=== PATIENT | male | born 1955 | race Hispanic/Latino ===

== ENCOUNTER 2019-09-18 06:31 | Observation (INO) | payer OTHER, SELFPAY ==
[2019-09-18] MEDS ORDERED: ASPIRIN EC 81 MG TAB PO ONE (06:47)
[2019-09-18] MEDS ORDERED: NA CHLORIDE 0.9% 1,000 ML ONE ×2 (06:47→08:31)
[2019-09-18] MEDS ORDERED: NA CHLORIDE 0.9% 50 ML IV ONE (06:49)
[2019-09-18] MEDS ORDERED: FOLIC ACID 5 MG/ML VIAL ONE (06:49)
[2019-09-18] MEDS ORDERED: ASPIRIN 81 MG CHEWABLE TABLET ONE (06:52)
[2019-09-18 06:53] LABS: Absolute Lymphocytes (CBC) 1.2 K/uL (0.7-4.9); Basophils % 0.4 % (0-1.3); Hematocrit 45.2 % (39.6-49.0); Lymphocytes % 24.8 % (15.3-44.8); MPV 9.4 fL (7.6-11.3); RBC Red Blood Cell Count 5.36 M/uL (4.33-5.43)
--- NOTE | 2019-09-18 06:53 | ER ---
Nurse's Notes [facility] Name: Mumtaz Lucas Age: 64 yrs Sex: Male : 1955 Arrival Date: 09/18/2019 Time: 06:26 Bed 5 Private MD: Diagnosis: Transient cerebral ischemic attack, unspecified;Cerebral infarction;Type 2 diabetes mellitus Presentation: 09/17 06:30 Chief complaint: EMS states: pt states having right sided numbness and right sided sg facial droop that began around 0500 this morning, EMS reports that symptoms improved after administering oral glucose due to a FSBG of 45, sugar increased to FSBG of 76, pt hypertensive on scene with BP Systolic 140's/90's. Coronavirus screen: The patient has NOT traveled to a country currently being monitored by the [facility] within the last 14 days. The patient has NOT had contact with any known and/or suspected case of coronavirus. Ebola Screen: Patient negative for fever greater than or equal to 101.5 degrees Fahrenheit, and additional compatible Ebola Virus Disease symptoms Patient denies exposure to infectious person. Patient denies travel to an Ebola-affected area in the 21 days before illness onset. No symptoms or risks identified at this time. An acute neurological deficit is present. The charge nurse has been notified. Initial Sepsis Screen: Does the patient meet any 2 criteria? No. Patient's initial sepsis screen is negative. Does the patient have a suspected source of infection? No. Patient's initial sepsis screen is negative. Risk Assessment: Do you want to hurt yourself or someone else? Patient reports no desire to harm self or others. 06:30 Method Of Arrival: EMS: [facility] sg 06:30 Acuity: GARY 2 sg 06:30 Note pt reports he was normal before bed around 2100 on 09/17/2019. sg 07:00 The patients blood glucose was checked before arriving to the hospital and was found to jd3 be hypoglycemic. The charge nurse has been notified. Onset of symptoms was September 17, 2019 at 21:00. Triage Assessment: 07:01 Neuro: Reports numbness in right leg and right arm weakness in right leg and right arm. jd3 Stroke Activation: Symptom onset < 3 hours Physician: Stroke Attending; Name: ; Notified At: ; Arrived At: Physician: Chief Stroke Resident; Name: ; Notified At: ; Arrived At: Physician: Stroke Resident; Name: ; Notified At: ; Arrived At: Physician: ED Attending; Name: ; Notified At: ; Arrived At: Physician: ED Resident; Name: ; Notified At: ; Arrived At: Historical: - Allergies: 06:30 No Known Allergies; sg - Home Meds: 06:30 Unable to obtain [Active]; sg - PMHx: 06:30 Diabetes - NIDDM; sg - Immunization history:: Adult Immunizations not up to date. - Social history:: Smoking status: Patient denies any tobacco usage or history of. - Family history:: not pertinent. Screenin:01 Abuse screen: Denies threats or abuse. Nutritional screening: No deficits noted. jd3 Tuberculosis screening: No symptoms or risk factors identified. Fall Risk IV access (20 points). Ambulatory Aid- None/Bed Rest/Nurse Assist (0 pts). Gait- Weak (10 pts.). Mental Status- Oriented to own ability (0 pts). Total Montanez Fall Scale indicates Low Risk Score (25-44 pts). Fall prevention measures have been instituted. Side Rails Up X 2 Placed close to Nursing Station Frequent Obs/Assesments occuring Family Present and informed to notify staff if they need to leave bedside. Assessment: 06:39 VAN Scoring: Arm Drift: Minor drift Visual Disturbance: No visual disturbance noted. jd3 Aphasia: No aphasia noted. Neglect: No neglect noted. General: Appears in no apparent distress. comfortable, Behavior is calm, cooperative, appropriate for age. Pain: Denies pain. Neuro: Level of Consciousness is awake, alert, obeys commands, Oriented to person, place, time, situation, Operations Systems Specialist are weak on right Speech is slurred, Numbness in right leg and right arm. Cardiovascular: Denies chest pain, Capillary refill < 3 seconds Patient's skin is warm and dry. Rhythm is regular. Respiratory: Airway is patent Respiratory effort is even, unlabored, Respiratory pattern is regular, symmetrical, Denies cough, shortness of breath. GI: No signs and/or symptoms were reported involving the gastrointestinal system. Patient currently denies constipation, diarrhea, nausea, vomiting. : No signs and/or symptoms were reported regarding the genitourinary system. EENT: No signs and/or symptoms were reported regarding the EENT system. Derm: Skin is intact, Skin is dry, Skin is normal, Skin temperature is warm. Musculoskeletal: Circulation, motion, and sensation intact. Range of motion: limited in right arm. 06:40 The patient has not been NPO before screening. The patient is currently on the jd3 following diet: regular The patient is alert, and able to follow commands. The patient exhibits slurred or garbled speech. Provider notified of the indication for Speech Therapy consult. The patient is not exhibiting difficulty speaking. The patient does not exhibit difficulty understanding words. The patient is able to swallow own secretions with no drooling or need for suction. Patient tolerated one teaspoon of water. No drooling, immediate coughing, gurgling, or clearing of the throat was noted. The patient tolerated 90mL of water. No drooling, immediate coughing, gurgling, or clearing of the throat was noted. The patient passed the bedside swallow screening. Oral medications may be given as ordered. Contact Physician for further diet orders. Provider notified of bedside swallow screening results: Antolin Markham MD. T-PA (Activase) Screening: Contraindications: Patient reports onset of signs and symptoms of stroke greater than 6 hours ago: Yes. 07:30 Reassessment: Ramy Aguilar (coworker) is pt's visitor today. sv 07:45 Reassessment: Pt unable to to do the MRI. Informed pt that I have medication to help sv calm him down. Pt stated that he feels better. Vital Signs: 07:00 BP 170 / 76; Pulse 81; Resp 16 S; Temp 98.5(O); Pulse Ox 99% on R/A; Weight 102.06 kg j (R); Height 5 ft. 5 in. (165.10 cm) (R); Pain 0/10; 09:13 BP 139 / 84; Pulse 71; Resp 20; Pulse Ox 96% ; sv 10:00 BP 139 / 90; Pulse 71; Resp 20; Pulse Ox 96% ; sv 10:57 BP 111 / 81; Pulse 63; Resp 18; Pulse Ox 96% ; sv 07:00 Body Mass Index 37.44 (102.06 kg, 165.10 cm) j NIH Stroke Scale Scores: 06:39 NIHSS Score: 5 jd3 06:49 NIHSS Score: [address] [facility] ED Course: 06:26 Patient arrived in ED. jd3 06:28 Antolin Markham MD is Attending Physician. myla 06:30 Arm band placed on. sg 06:33 Triage completed. sg 06:34 Radiology exam delayed due to pt not registered. eh 06:38 EKG done, by ED staff, reviewed by Antolin Markham MD. sg 06:44 CT Stroke Brain w/o Contrast In Process Unspecified. EDMS 06:51 Kathrin Can MD is Hospitalizing Provider. myla 06:52 Dung Sanchez, RN is Primary Nurse. jd3 07:01 XRAY Chest (1 view) In Process Unspecified. EDMS 07:01 Patient has correct armband on for positive identification. Placed in gown. Bed in low jd3 position. Call light in reach. Side rails up X 1. Adult w/ patient. threat monitoring analyst on. Pulse ox on. NIBP on. 07:04 Maintain EMS IV. Dressing intact. Good blood return noted. Site clean \T\ dry. Gauge \T\ nikhil 3 site: 20 G left AC. 07:12 Maliha Magaña, RN is Primary Nurse. sv 07:25 US Carotid Artery Bilateral In Process Unspecified. EDMS 07:57 Head angio In Process Unspecified. EDMS 09:00 Missed attempt(s): 20 gauge in right wrist. Bleeding controlled, band aid applied, sv catheter tip intact. 09:04 Inserted saline lock: 20 gauge in right forearm, using aseptic technique. Blood sv collected. Flushed right forearm with 5 ml normal saline. 10:36 Echocardiogram with doppler done by automotive engineering technician. tc Administered Medications: 06:53 Drug: NS 0.9% 1000 ml Route: IV; Rate: 1 bolus; Site: left antecubital; bb 08:00 Follow up: Response: No adverse reaction; IV Status: Completed infusion; IV Intake: sv 1000ml 06:53 Drug: foLIC Acid 1 mg Route: IVPB; Site: left antecubital; bb 06:53 Drug: Aspirin Chewable Tablet 324 mg Route: PO; bb 07:30 Follow up: Response: No adverse reaction sv 07:50 CANCELLED (Patient Refused): Ativan 1 mg IVP once sv 09:01 Drug: Zocor 40 mg Route: PO; sv 10:00 Follow up: Response: No adverse reaction sv 09:01 Drug: PlaVIX 75 mg Route: PO; sv 10:00 Follow up: Response: No adverse reaction sv 09:02 Drug: NS 0.9% 1000 ml Route: IV; Rate: 125 ml/hr; Site: right forearm; sv 11:16 Follow up: Response: No adverse reaction; IV Status: Infusion continued upon admission sv Point of Care Testing: Blood Glucose: 06:41 Blood Glucose: 292 mg/dL; jd3 Ranges: Intake: 08:00 IV: 1000ml; Total: 1000ml. sv Outcome: 06:52 Decision to Hospitalize by Provider. myla 11:03 Admitted to Tele accompanied by tech, via wheelchair, room 215, with chart, Report sv called to Lakeshia MARQUEZ 11:03 Condition: stable 11:03 Instructed on the need for admit. 11:16 Patient left the ED. sv NIH Stroke Scale - NIH Stroke Score Date: 09/18/2019 Time: 06:39 Total Score = 5 1a. Level of Consciousness (LOC) - 0(Alert) 1b. Level of Consciousness (LOC) (Year \T\ Age) - 0(Both) 1c. LOC Commands (Open \T\ Closes Eyes/Warpman) - 0(Both) 2. Best Gaze (Lateral Gaze Paresis) - 0(Normal) 3. Visual Field Loss - 0(No visual loss) 4. Facial Palsy - 1(Minor Paralysis) 5a. Left Arm: Motor (10-second hold) - 0(No drift) 5b. Right Arm: Motor (10-second hold) - 1(Drift) 6a. Left Leg: Motor (5-second hold - always test supine) - 0(No drift) 6b. Right Leg: Motor (5-second hold - always test supine) - 1(Drift) 7. Limb Ataxia (finger/nose \T\ heel/nicolas - test with eyes open) - 1(Present in one limb) 8. Sensory Loss (pinprick arms/legs/face) - 0(Normal) 9. Best Language: Aphasia (description/naming/reading) - 0(No aphasia) 10. Dysarthria (speech clarity - read or repeat words) - 1(Mild to Moderate) 11. Extinction and Inattention (visual/tactile/auditory/spatial/personal) - 0(No abnormality) Initials: jd3 NIH Stroke Scale - NIH Stroke Score Date: 09/18/2019 Time: 06:49 Total Score = 7 1a. Level of Consciousness (LOC) - 0(Alert) 1b. Level of Consciousness (LOC) (Year \T\ Age) - 0(Both) 1c. LOC Commands (Open \T\ Closes Eyes/Warpman) - 0(Both) 2. Best Gaze (Lateral Gaze Paresis) - 0(Normal) 3. Visual Field Loss - 0(No visual loss) 4. Facial Palsy - 2(Partial paralysis) 5a. Left Arm: Motor (10-second hold) - 0(No drift) 5b. Right Arm: Motor (10-second hold) - 2(Drift, some effort against gravity) 6a. Left Leg: Motor (5-second hold - always test supine) - 0(No drift) 6b. Right Leg: Motor (5-second hold - always test supine) - 1(Drift) 7. Limb Ataxia (finger/nose \T\ heel/nicolas - test with eyes open) - 2(Present in two limbs) 8. Sensory Loss (pinprick arms/legs/face) - 0(Normal) 9. Best Language: Aphasia (description/naming/reading) - 0(No aphasia) 10. Dysarthria (speech clarity - read or repeat words) - 0(Normal) 11. Extinction and Inattention (visual/tactile/auditory/spatial/personal) - 0(No abnormality) Initials: myla Signatures: Dispatcher [employer] Maliha Gusman, RN Ercikson Farley RN RN sg Anderson, Corey, MD MD cha Hagler, Ervin eh Ballard, Brenda, RN RN bb Callis, Tiffany, adjunct instructor EKG Dung Huynh RN RN jd3
--- NOTE | 2019-09-18 06:53 | EDPHYS ---
Physician Documentation [facility] Name: Mumtaz Lucas Age: 64 yrs Sex: Male : 1955 Arrival Date: 09/18/2019 Time: 06:26 Bed 5 Private MD: ED Physician Antolin Markham HPI: 09/17 06:38 This 64 yrs old Male presents to ER via EMS with complaints of Facial Droop. [facility] 06:38 The patient presents to the emergency department with weakness of the right side of the [facility] face, that is moderate, difficulty standing, difficult walking, the patient falls to the right. Onset: The symptoms/episode began/occurred bed 930pm awoke 5 am with symptoms. Context: occurred hotel. Associated signs and symptoms: Pertinent positives: dizziness. Severity of symptoms: At their worst the symptoms were moderate. Patient's baseline: Neuro: alert and fully oriented, Motor: no deficits, Ambulation: walks without assistance, Speech: normal. Current symptoms: paralysis or paresis, of the right arm and right leg, that is moderate. The patient has not experienced similar symptoms in the past. Historical: - Allergies: 06:30 No Known Allergies; sg - Home Meds: 06:30 Unable to obtain [Active]; sg - PMHx: 06:30 Diabetes - NIDDM; sg - Immunization history:: Adult Immunizations not up to date. - Social history:: Smoking status: Patient denies any tobacco usage or history of. - Family history:: not pertinent. ROS: 06:38 Constitutional: Negative for fever, chills, and weight loss, Eyes: Negative for injury, myla pain, redness, and discharge, ENT: Negative for injury, pain, and discharge, Neck: Negative for injury, pain, and swelling, Cardiovascular: Negative for chest pain, palpitations, and edema, Respiratory: Negative for shortness of breath, cough, wheezing, and pleuritic chest pain, Abdomen/GI: Negative for abdominal pain, nausea, vomiting, diarrhea, and constipation, Back: Negative for injury and pain, : Negative for injury, bleeding, discharge, and swelling, MS/Extremity: Negative for injury and deformity, Skin: Negative for injury, rash, and discoloration, Psych: Negative for depression, anxiety, suicide ideation, homicidal ideation, and hallucinations, Allergy/Immunology: Negative for hives, rash, and allergies, Endocrine: Negative for neck swelling, polydipsia, polyuria, polyphagia, and marked weight changes, Hematologic/Lymphatic: Negative for swollen nodes, abnormal bleeding, and unusual bruising. 06:38 Neuro: Positive for weakness, of the face, right arm and right leg. Exam: 06:38 Constitutional: This is a well developed, well nourished patient who is awake, alert, myla and in no acute distress. Eyes: Pupils equal round and reactive to light, extra-ocular motions intact. Lids and lashes normal. Conjunctiva and sclera are non-icteric and not injected. Cornea within normal limits. Periorbital areas with no swelling, redness, or edema. ENT: Nares patent. No nasal discharge, no septal abnormalities noted. Tympanic membranes are normal and external auditory canals are clear. Oropharynx with no redness, swelling, or masses, exudates, or evidence of obstruction, uvula midline. Mucous membranes moist. Neck: Trachea midline, no thyromegaly or masses palpated, and no cervical lymphadenopathy. Supple, full range of motion without nuchal rigidity, or vertebral point tenderness. No Meningismus. Chest/axilla: Normal chest wall appearance and motion. Nontender with no deformity. No lesions are appreciated. Cardiovascular: Regular rate and rhythm with a normal S1 and S2. No gallops, murmurs, or rubs. Normal PMI, no JVD. No pulse deficits. Respiratory: Lungs have equal breath sounds bilaterally, clear to auscultation and percussion. No rales, rhonchi or wheezes noted. No increased work of breathing, no retractions or nasal flaring. Abdomen/GI: Soft, non-tender, with normal bowel sounds. No distension or tympany. No guarding or rebound. No evidence of tenderness throughout. Back: No spinal tenderness. No costovertebral tenderness. Full range of motion. Male : Normal genitalia with no discharge or lesions. Skin: Warm, dry with normal turgor. Normal color with no rashes, no lesions, and no evidence of cellulitis. Psych: Awake, alert, with orientation to person, place and time. Behavior, mood, and affect are within normal limits. 06:38 Head/face: Noted is right lower facial weakness. 06:38 Musculoskeletal/extremity: Extremities: noted in the right arm and right leg: decreased ROM, ROM: limited active range of motion, in the right arm and right leg, Circulation is intact in all extremities. Sensation intact. 06:38 Neuro: Orientation: is normal, appropriate for stated age, no acute changes, Mentation: is normal, appropriate for stated age, no acute changes, Memory: is normal, appropriate for stated age, no acute changes, Cranial nerves: facial droop noted on right, with forehead spared. Motor: moves all fours, Strength is 3/5 in the right arm and right leg. Vital Signs: 07:00 BP 170 / 76; Pulse 81; Resp 16 S; Temp 98.5(O); Pulse Ox 99% on R/A; Weight 102.06 kg jd3 (R); Height 5 ft. 5 in. (165.10 cm) (R); Pain 0/10; 09:13 BP 139 / 84; Pulse 71; Resp 20; Pulse Ox 96% ; sv 10:00 BP 139 / 90; Pulse 71; Resp 20; Pulse Ox 96% ; sv 10:57 BP 111 / 81; Pulse 63; Resp 18; Pulse Ox 96% ; sv 07:00 Body Mass Index 37.44 (102.06 kg, 165.10 cm) jd3 NIH Stroke Scale Scores: 06:39 NIHSS Score: 5 jd3 06:49 NIHSS Score: 7 myla MDM: 06:33 Patient medically screened. myla 06:44 Data reviewed: vital signs, nurses notes, lab test result(s), EKG, radiologic studies, myla CT scan, MRI, plain films. 07:16 ED course: not a tpa candidate. went to bed at 930pm all normal, awoke 515am right face myla (lower) and right arm and leg weak. dr frye agrees. 09/17 06:33 Order name: Basic Metabolic Panel; Complete Time: 07:32 myla 09/17 06:33 Order name: CBC with Diff; Complete Time: 06:55 myla 09/17 06:33 Order name: LFT's; Complete Time: 07:32 myla 09/17 06:33 Order name: Magnesium; Complete Time: 07:32 myla 09/17 06:33 Order name: NT PRO-BNP; Complete Time: 07:32 myla 09/17 06:33 Order name: PT-INR; Complete Time: 07:32 myla 09/17 06:33 Order name: Troponin (emerg Dept Use Only); Complete Time: 07:32 [facility] 09/17 06:33 Order name: XRAY Chest (1 view); Complete Time: 07:32 [facility] 09/17 06:33 Order name: Ptt, Activated; Complete Time: 07:32 [facility] 09/17 06:33 Order name: CT Stroke Brain w/o Contrast [facility] 09/17 06:33 Order name: Urine Culture [facility] 09/17 06:53 Order name: Glucose, Ancillary Testing; Complete Time: 06:55 EDMS 09/17 07:50 Order name: Lipid Profile [facility] 09/17 08:27 Order name: Urine Dipstick--Ancillary (enter results) em1 09/17 06:33 Order name: EKG; Complete Time: 06:37 [facility] 09/17 06:33 Order name: Cardiac monitoring; Complete Time: 06:47 [facility] 09/17 06:33 Order name: EKG - Nurse/Tech; Complete Time: 06:48 [facility] 09/17 06:53 Order name: US Carotid Artery Bilateral [facility] 09/17 06:53 Order name: MRI Stroke Protocol [facility] 09/17 07:07 Order name: Echo w/ Doppler [facility] 09/17 07:46 Order name: Head angio; Complete Time: 08:13 EDNJ 09/17 06:33 Order name: IV Saline Lock; Complete Time: 06:48 [facility] 09/17 06:33 Order name: Labs collected and sent; Complete Time: 06:48 [facility] 09/17 06:33 Order name: O2 Per Protocol; Complete Time: 06:48 [facility] 09/17 06:33 Order name: O2 Sat Monitoring; Complete Time: 06:48 [facility] 09/17 06:33 Order name: Accucheck; Complete Time: 06:47 [facility] 09/17 06:33 Order name: NPO; Complete Time: 06:47 [facility] 09/17 06:33 Order name: Stroke Swallow Screen; Complete Time: 06:47 [facility] 09/17 06:33 Order name: Blood Glucose Level; Complete Time: 06:47 [facility] 09/17 06:33 Order name: Urine Dipstick-Ancillary (obtain specimen); Complete Time: 08:28 [facility] Administered Medications: 06:53 Drug: NS 0.9% 1000 ml Route: IV; Rate: 1 bolus; Site: left antecubital; bb 08:00 Follow up: Response: No adverse reaction; IV Status: Completed infusion; IV Intake: sv 1000ml 06:53 Drug: foLIC Acid 1 mg Route: IVPB; Site: left antecubital; bb 06:53 Drug: Aspirin Chewable Tablet 324 mg Route: PO; bb 07:30 Follow up: Response: No adverse reaction sv 07:50 CANCELLED (Patient Refused): Ativan 1 mg IVP once sv 09:01 Drug: Zocor 40 mg Route: PO; sv 10:00 Follow up: Response: No adverse reaction sv 09:01 Drug: PlaVIX 75 mg Route: PO; sv 10:00 Follow up: Response: No adverse reaction sv 09:02 Drug: NS 0.9% 1000 ml Route: IV; Rate: 125 ml/hr; Site: right forearm; sv 11:16 Follow up: Response: No adverse reaction; IV Status: Infusion continued upon admission sv Point of Care Testing: Blood Glucose: 06:41 Blood Glucose: 292 mg/dL; jd3 Ranges: Critical Glucose Levels:Adult <50 mg/dl or >400 mg/dl <40 mg/dl or >180 mg/dl Disposition: 09/18/19 06:52 Hospitalization ordered by Kathrin Can for Inpatient Admission. Preliminary diagnosis are Transient cerebral ischemic attack, unspecified, Cerebral infarction, Type 2 diabetes mellitus. - Bed requested for Telemetry/MedSurg (Inpatient). - Status is Inpatient Admission. sv - Condition is Fair. - Problem is new. - Symptoms have improved. NIH Stroke Scale - NIH Stroke Score Date: 09/18/2019 Time: 06:39 Total Score = 5 1a. Level of Consciousness (LOC) - 0(Alert) 1b. Level of Consciousness (LOC) (Year \T\ Age) - 0(Both) 1c. LOC Commands (Open \T\ Closes Eyes/Seamstress Fitter) - 0(Both) 2. Best Gaze (Lateral Gaze Paresis) - 0(Normal) 3. Visual Field Loss - 0(No visual loss) 4. Facial Palsy - 1(Minor Paralysis) 5a. Left Arm: Motor (10-second hold) - 0(No drift) 5b. Right Arm: Motor (10-second hold) - 1(Drift) 6a. Left Leg: Motor (5-second hold - always test supine) - 0(No drift) 6b. Right Leg: Motor (5-second hold - always test supine) - 1(Drift) 7. Limb Ataxia (finger/nose \T\ heel/nicolas - test with eyes open) - 1(Present in one limb) 8. Sensory Loss (pinprick arms/legs/face) - 0(Normal) 9. Best Language: Aphasia (description/naming/reading) - 0(No aphasia) 10. Dysarthria (speech clarity - read or repeat words) - 1(Mild to Moderate) 11. Extinction and Inattention (visual/tactile/auditory/spatial/personal) - 0(No abnormality) Initials: jd3 NIH Stroke Scale - NIH Stroke Score Date: 09/18/2019 Time: 06:49 Total Score = 7 1a. Level of Consciousness (LOC) - 0(Alert) 1b. Level of Consciousness (LOC) (Year \T\ Age) - 0(Both) 1c. LOC Commands (Open \T\ Closes Eyes/Seamstress Fitter) - 0(Both) 2. Best Gaze (Lateral Gaze Paresis) - 0(Normal) 3. Visual Field Loss - 0(No visual loss) 4. Facial Palsy - 2(Partial paralysis) 5a. Left Arm: Motor (10-second hold) - 0(No drift) 5b. Right Arm: Motor (10-second hold) - 2(Drift, some effort against gravity) 6a. Left Leg: Motor (5-second hold - always test supine) - 0(No drift) 6b. Right Leg: Motor (5-second hold - always test supine) - 1(Drift) 7. Limb Ataxia (finger/nose \T\ heel/nicolas - test with eyes open) - 2(Present in two limbs) 8. Sensory Loss (pinprick arms/legs/face) - 0(Normal) 9. Best Language: Aphasia (description/naming/reading) - 0(No aphasia) 10. Dysarthria (speech clarity - read or repeat words) - 0(Normal) 11. Extinction and Inattention (visual/tactile/auditory/spatial/personal) - 0(No abnormality) Initials: myla Signatures: Dispatcher [employer] Maliha Gusman RN RN sv Gay, Steven, RN RN sg Anderson, Corey, MD MD cha Ballard, Brenda, RN RN bb Martinez, Eric em1 Corrections: (The following items were deleted from the chart) 07:46 06:38 Head Angio+CT.RAD.BRZ ordered. EDMS EDMS 07:50 07:35 Ativan 1 mg IVP once ordered. myla sv 09:03 06:52 Hospitalization Ordered by Kathrin Can MD for Inpatient Admission. sv Preliminary diagnosis is Transient cerebral ischemic attack, unspecified; Cerebral infarction; Type 2 diabetes mellitus. Bed requested for Telemetry/MedSurg (Inpatient). Status is Inpatient Admission. Condition is Fair. Problem is new. Symptoms have improved. myla 10:22 09:03 09/18/2019 06:52 Hospitalization Ordered by Kathrin Can MD for Inpatient em1 Admission. Preliminary diagnosis is Transient cerebral ischemic attack, unspecified; Cerebral infarction; Type 2 diabetes mellitus. Bed requested for Telemetry/MedSurg (Inpatient). Status is Inpatient Admission. Condition is Fair. Problem is new. Symptoms have improved. sv 10:26 10:22 09/18/2019 06:52 Hospitalization Ordered by Kathrin Can MD for Inpatient em1 Admission. Preliminary diagnosis is Transient cerebral ischemic attack, unspecified; Cerebral infarction; Type 2 diabetes mellitus. Bed requested for Telemetry/MedSurg (Inpatient). Status is Inpatient Admission. Condition is Fair. Problem is new. Symptoms have improved. em1 11:16 10:26 09/18/2019 06:52 Hospitalization Ordered by Kathrin Can MD for Inpatient sv Admission. Preliminary diagnosis is Transient cerebral ischemic attack, unspecified; Cerebral infarction; Type 2 diabetes mellitus. Bed requested for Telemetry/MedSurg (Inpatient). Status is Inpatient Admission. Condition is Fair. Problem is new. Symptoms have improved. em1
[2019-09-18 06:57] LABS: Protime INR 0.97
[2019-09-18 07:09] LABS: Albumin 3.9 g/dL (3.4-5.0); Bilirubin Direct 0.2 mg/dL (0-0.2); Bilirubin Total 0.8 mg/dL (0.2-1.0); Magnesium 1.9 mg/dL (1.8-2.4); Potassium 3.9 mmol/L (3.5-5.1); Protein, Total 7.1 g/dL (6.4-8.2); Troponin (Emerg Dept Use Only) 0.03 ng/mL (0.0-0.045)
--- NOTE | 2019-09-18 07:15 | RAD REPORT ---
EXAM DESCRIPTION: RAD - Chest Single View - 09/18/2019 7:00 am CLINICAL HISTORY: COUGH, code stroke chest film TECHNIQUE: AP portable chest image was obtained 09/18/2019 7:00 am . FINDINGS: Lungs are clear. Heart and vasculature are normal. No measurable pleural effusion and no p neumothorax. No acute bony abnormality seen. No acute aortic findings suspected. IMPRESSION: No acute cardiopulmonary process.
[2019-09-18] MEDS ORDERED: LORazepam 2 MG/ML VIAL ONE (07:42)
--- NOTE | 2019-09-18 08:03 | RAD REPORT ---
EXAM DESCRIPTION: CT - Head angio - 09/18/2019 7:56 am CLINICAL HISTORY: TIA TECHNIQUE: During dynamic enhancement using nonionic IV contrast, axial 1 millimeter thick images of the head were obtained. Sagittal and axial reconstruction images were generated using MIP technique and reviewed. All CT scans are performed using dose optimization technique as appropriate and may include automated exposure control or mA/KV adjustment according to patient size. FINDINGS: No aneurysm or vascular malformation identified. Major venous sinuses are patent. No stenosis, named branch occlusion, vasculitis or other significant vascular finding identifiable. The right A1 anterior cerebral artery segment is absent as a normal variant. Right JLUIS circulation ar ises from the left anterior cerebral artery. IMPRESSION: Negative CT angio head examination for acute finding.
[2019-09-18] MEDS ORDERED: CLOPIDOGREL 75 MG TABLET ONE (08:31)
[2019-09-18] MEDS ORDERED: ATORVASTATIN 20 MG TAB ONE (08:45)
--- NOTE | 2019-09-18 08:50 | RAD REPORT ---
EXAM DESCRIPTION: - CP - 09/18/2019 7:25 am CLINICAL HISTORY: Weakness;TIA COMPARISON: No comparisons TECHNIQUE: Real-time sonographic evaluation of bilateral carotid and vertebral systems was performed . Bourne scale and Doppler interrogation were performed with waveform tracing bilaterally. FINDINGS: Normal high resistance waveforms are noted in both external carotid arteries. The common c arotid arteries and internal carotid arteries show normal low resistance waveforms. Bilateral common carotid artery intimal thickening seen. Plaquing changes are present but relatively mild. On visual inspection no significant luminal narrowing. No suspicious waveform pattern. Velocity values are symmetric. Peak systolic and end diastolic velocity values and the ICA/CCA ratios are in the non-hemodynamically significant range. Antegrade flow seen in both vertebral arteries. Velocity values and ratios were recorded and are retained in the patient's imaging records. IMPRESSION: Arterial wall intimal thickening and mild scattered plaquing changes. No evidence of a hemodynamically significant stenosis.
[2019-09-18 09:08] LABS: Urine Blood NEGATIVE (NEG); Urine Glucose 2+ (NEG); Urine Protein TRACE (NEG)
[2019-09-18] MEDS ORDERED: ACETAMINOPHEN 500 MG TAB PO PRN (09:37)
[2019-09-18] MEDS ORDERED: ONDANSETRON 4 MG/2 ML VIAL IV PRN (09:37)
[2019-09-18] MEDS ORDERED: NA CHLORIDE 0.9% 1,000 ML IV SCH (09:37)
[2019-09-18] MEDS ORDERED: ENOXAPARIN 40 MG/0.4 ML SQ SCH (09:37)
--- NOTE | 2019-09-18 09:53 | RAD REPORT ---
EXAM DESCRIPTION: CT - Ct Stroke Brain Wo Cont - 09/18/2019 6:44 am ADDENDUM #1 Findings directly communicated to Dr. Antolin Markham at 0710 hours on 09/18/2019. Electronically signed by: Radha Husain DO 09/18/2019 7:10 AM CDT End of Addendum CT HEAD WITHOUT CONTRAST CLINICAL HISTORY: TIA COMPARISON: None. TECHNIQUE: Axial unenhanced CT imaging of the brain. Reformatted coronal and sagittal images obtaine d. This examination was performed according to our departmental dose optimization program, which include s automated exposure control, adjustment of the mA and/or kV according to patient size and/or use of iterative reconstruction technique. FINDINGS: There is very mild generalized age-related cortical volume loss. Mild decreased white francisco er attenuation due to chronic microvascular ischemic change. There is no acute intracranial bleed. Th ere is no edema, mass, or midline shift. No hyperdense vessel. No large acute territorial infarction. Normal cerebellum and vermis. Fourth ventricle is midline. Prepontine cisterns are not effaced. Norm al sella contents. Intraorbital contents appear normal. Paranasal sinuses appear clear. Clear mastoid air cells. Intact calvarium. Skull base and imaged facial bones appear intact. Unremarkable scalp soft tissues. IMPRESSION: 1. Mild senescent brain changes. No intracranial acute finding. Electronically signed by: Radha Husain DO 09/18/2019 6:58 AM CDT Due to temporary technical issues with the PACS/Fluency reporting system, reports are being signed by the in house radiologist as a courtesy to ensure prompt reporting. The interpreting radiologist is f ully responsible for the content of the report.
[2019-09-18 11:45] VITALS: BMI 35.6
[2019-09-18] MEDS: INSULIN -REGULAR HUMAN 50 UNIT/0.5 ML ML SQ SCH ×2 (12:05→15:46)
[2019-09-18 14:16] VITALS: O2SAT 95
[2019-09-18 16:41] VITALS: BP 113/58; TEMP 98
--- NOTE | 2019-09-18 16:55 | EKG ---
Test Date: 2019-09-18 Test Time: 06:38:51 Cafeteria Counter Attendant: SWG MEASUREMENT RESULTS: Intervals: Rate: 77 NE: 168 QRSD: 98 QT: 394 QTc: 445 Aztec: P: 45 NE: 168 QRS: 16 T: 41 INTERPRETIVE STATEMENTS: Normal sinus rhythm Normal ECG No previous ECG available for comparison Electronically Signed On 09-18-19 16:54:54 CDT by Ashok Vallejo
--- NOTE | 2019-09-18 19:33 | HP ---
Date of Admission: 09/18/2019 Consultants: Wili Quevedo MD with Neurology. Code Status: Full. Chief Complaint: Weakness on the right side. History Of Present Illness: Patient is a 64-year-old male with past medical history of hypertension, diabetes, hyperlipidemia, not compliant with his medication regimen, who was in his usual state of health until this morning when the patient woke up after going to sleep around 9:30 p.m. with right-sided weakness, facial droop, and dysarthria. Patient was promptly brought into the ER. However, as he woke up with the symptoms, he is not a candidate for tPA. His symptoms were gradually improving as well. Patient otherwise denies any fever, chills, shortness of breath, cough. Patient's initial head CT scan was negative. He refused the MRI due to claustrophobia and did not wish to take any medications to help him relax. He also had a CT angio of the head, which was negative. Patient was then referred for admission. When seen in the ER, he was awake, alert, oriented x3, obese male, in some mild distress, accompanied by his norris. Patient works at the [employer]. Past Medical History: Hypertension, hyperlipidemia, diabetes mellitus type 2, non-insulin requiring. Past Surgical History: Appendectomy. Allergies: NO KNOWN DRUG ALLERGIES. Medications: Patient is currently not taking any medications. Social History: Patient denies any tobacco use, alcohol use, or illicit drug use. Works in the railroad. Independent in his activities of daily living. Lives in [place], down here for work. Review of Systems: Ten-point system reviewed, negative except as per HPI. Physical Examination: Vital Signs: Temperature 98.5, heart rate 81, blood pressure 170/76, respirations 16, O2 99% on room air. General: Awake, alert, oriented x3. Ill-appearing male, in some mild distress , obese, BMI 35. HEENT: Normocephalic, atraumatic. PERRLA. EOMI. Moist mucous membranes. Oropharynx is clear. Poor dentition. Conjunctivae anicteric. Neck: Supple. No JVD. Trachea midline. CV: S1, S2. Regular rate and rhythm. Peripheral pulses present. Respiratory: Moving air well bilaterally. No wheezing or stridor. No use of accessory muscles. Gastrointestinal: Abdomen is soft, nontender, nondistended. Positive bowel sounds. No guarding or rigidity. Extremities: No clubbing, cyanosis, or edema. No calf tenderness. Neuro: Cranial nerves 2 through 12 intact grossly. Patient has mild weakness on the right upper extremity fine grader strength. He has facial asymmetry. Although speech is comprehensible, it is abnormal. Skin: No rashes. Normal skin turgor. Psych: Mood is okay. Affect is full. Insight and judgment are fair. Laboratory Data: UA is negative. Sodium 138, potassium 3.9, chloride 106, CO2 of 25, BUN 18, creatinine 0.94, glucose 289, calcium 8.5, magnesium 1.9. Triglycerides 183, cholesterol 178, LDL 103, HDL 38. WBC 4.7, H and H 15.3 and 45.2, platelets 170. Imaging Studies: CT angio of the head shows no aneurysm or vascular malformation. Major venous sinuses are patent. No stenosis, branch occlusion, vasculitis, or other significant vascular finding identifiable. The right A1 anterior cerebral artery segment is absent as a normal variant. Right JLUIS circulation arises from the left anterior cerebral artery. Head CT shows mild senescent brain changes, no intracranial acute finding. Chest x-ray personally reviewed, shows no acute cardiopulmonary process. Carotid artery ultrasound shows arterial wall intimal thickening and mild scattered plaquing changes. No evidence of hemodynamically significant stenosis. Assessment: A 64-year-old male with: 1. Right-sided weakness, likely transient ischemic attack versus cerebrovascular accident. Patient has mild improvement in his symptoms. Initial NIH Stroke Scale was 7. We will consult Neurology. We will start on aspirin and statin. Obtain lipid panel and complete workup for stroke. CT angio head was negative. Patient refused MRI as he is claustrophobic, did not wish to take any medications to help him relax. He understands an MRI is the best imaging modality. May need a repeat CT scan if not improving. We will continue with speech therapy, occupational therapy, and physical therapy. 2. Essential hypertension. We will allow permissive hypertension. Patient currently not taking any medications at home. 3. Diabetes mellitus type 2. We will start on sliding scale insulin with hyperglycemia. We will check hemoglobin A1c. 4. Mixed hyperlipidemia. Triglycerides 183, HDL is low at 38. Continue statin. 5. Noncompliance, intentional. 6. Deep vein thrombosis prophylaxis with Lovenox. Plan: Ad[facility]. ADDENDUM. Case was discussed with Dr. Quevedo. He recommended outpatient follow up. Patient did not wish to receive MRI due to claustrophobia. As his workup is completed and his strength is improved patient can be discharged safely home. He worked with physical therapy and is able to ambulate without any assistive devices. Physical therapist did not recommend any inpatient rehab. Patient was also seen by speech therapist and did not have any swallowing dysfunction. Also should be noted patient is from out of town from [place] and will need to establish care with neurology and follow up with his primary care physician within the next week. He was counseled extensively regarding compliance with his medications. His daughter was at the bedside who lives here however he also has a daughter in [place]. Patient was discharged home in a stable condition MONI Voice ID: [id number]
[2019-09-18] MEDS ORDERED: ATORVASTATIN 40 MG TAB PO SCH (21:00)
--- NOTE | 2019-09-19 07:52 | ECHO ---
HEIGHT: 5 ft 5 in WEIGHT: 214 lb 2 oz DATE OF STUDY: 09/18/[address]: Antolin Markham MD 2-DIMENSIONAL: YES M.MODE: YES DOPPLER: YES COLOR FLOW: YES TDS: YES PORTABLE: NO DEFINITY: NO BUBBLE STUDY: NO DIAGNOSIS: CEREBRAL VASCULAR ACCIDENT CARDIAC HISTORY: CATHERIZATION: NO SURGERY: NO PROSTHETIC VALVE: NO PACEMAKER: NO MEASUREMENTS (cm) DIASTOLIC (NORMALS) SYSTOLIC (NORMALS) IVSd 1.2 (0.6-1.2) LA Diam 3.7 (1.9-4.0) LVEF 64% LVIDd 4.6 (3.5-5.7) LVIDs 3.0 (2.0-3.5) %FS 35% LVPWd 1.3 (0.6-1.2) Ao Diam 3.3 (2.0-3.7) 2 DIMENSIONAL ASSESSMENT: RIGHT ATRIUM: NORMAL LEFT ATRIUM: NORMAL RIGHT VENTRICLE: NORMAL LEFT VENTRICLE: NORMAL TRICUSPID VALVE: NORMAL MITRAL VALVE: NORMAL PULMONIC VALVE: NORMAL AORTIC VALVE: NORMAL PERICARDIAL EFFUSION: NONE AORTIC ROOT: NORMAL LEFT VENTRICULAR WALL MOTION: NORMAL DOPPLER/COLOR FLOW: PHYSIOLOGIC TRICUSPID REGURGITATION. NORMAL RIGHT VENTRICULAR SYSTOLIC PRESSURE. COMMENTS: NORMAL 2D ECHOCARDIOGRAM WITH DOPPLER. TECHNOLOGIST: Isamar BAZAN
[2019-09-19] MEDS ORDERED: ASPIRIN EC 81 MG TAB PO SCH (09:00)
== END 2019-09-18 18:22 | disposition home or self-care (01) ==
LOC: ER 06:31 → ERHOLD 08:06 → 2ND 11:05
PROVIDERS: ADMIT Family Medicine; ATTEND Family Medicine
DX: R53.1 Weakness (principal); R29.810 Facial weakness; I10 Essential (primary) hypertension; E11.9 Type 2 diabetes mellitus without complications; E78.2 Mixed hyperlipidemia; F40.240 Claustrophobia; R29.707 NIHSS score 7; Z91.19 Patient's noncompliance with other medical treatment and regimen; Z53.29 Procedure and treatment not carried out because of patient's decision for other reasons
CPT/HCPCS: 36415; 70450; 70496; 71045; 80048; 80061; 80076; 81003; 82947; 83735; 83880; 84484; 85025; 85610; 85730; 87086; 87088; 93005; 93306; 93880; 94760; 96361; 96374; 97112; 97116; 97161; 97530; 99285; G0378; J1650; J7030; Q9967